=== PATIENT | female | born 1995 | race American Indian/Alaskan Native ===

== ENCOUNTER 2019-01-03 08:52 | Outpatient (CLI) | payer MEDICAID | END 2019-01-03 12:16 | disposition home or self-care (01) | LOC: LAB 08:52 → TRG 11:36 → LAB 12:16 | PROVIDERS: ATTEND Obstetrics & Gynecology | DX: O36.0130 Maternal care for anti-D [Rh] antibodies, third trimester, not applicable or unspecified (principal); Z3A.31 31 weeks gestation of pregnancy | CPT/HCPCS: 86850; 86900; 86901; 96372; J2790 ==

== ENCOUNTER 2019-01-31 13:24 | Outpatient (CLI) | payer MEDICAID ==
[2019-01-31] MEDS ORDERED: LACTATED RINGERS 500 ML IV ONE (13:28)
[2019-01-31 13:45] VITALS: BP 111/53
[2019-01-31 14:14] LABS: Bacteria,Urine 1+ /HPF (Negative); Bilirubin,Urine NEG (Negative); Blood,Urine NEG (Negative); Color,Urine Yellow (Yellow); Mucus,Urine 3+ /HPF; Protein,Urine <15 mg/dL mg/dL (Negative); RBC,Urine < 1.0 /HPF (0.0-6.0); Urobilinogen,Urine < 2.0 mg/dL (<2.0)
[2019-01-31] MEDS ORDERED: LACTATED RINGERS 1,000 ML IV ONE (14:55)
== END 2019-01-31 15:08 | disposition home or self-care (01) ==
LOC: TRG 13:24
PROVIDERS: ATTEND Obstetrics & Gynecology
DX: O26.893 Other specified pregnancy related conditions, third trimester (principal); R10.2 Pelvic and perineal pain; M54.5 Low back pain; O47.03 False labor before 37 completed weeks of gestation, third trimester; Z3A.35 35 weeks gestation of pregnancy
CPT/HCPCS: 81001; 96360; J7120

== ENCOUNTER 2019-02-10 13:04 | Outpatient (CLI) | payer MEDICAID ==
[2019-02-10] MEDS ORDERED: LACTATED RINGERS 0 ML ONE (15:15)
[2019-02-10 15:22] LABS: Bilirubin,Urine NEG (Negative); Blood,Urine NEG (Negative); Color,Urine Yellow (Yellow); Mucus,Urine 3+ /HPF; Protein,Urine <15 mg/dL mg/dL (Negative)
[2019-02-10 15:24] LABS: WBC,Urine < 1.0 /HPF (0.0-6.0)
[2019-02-10 15:59] LABS: BUN/Creatinine Ratio 10; Blood Urea Nitrogen 3 mg/dL (7-17); Calcium 9.2 mg/dL (8.4-10.2); Hemolysis Index 74
--- NOTE | 2019-02-10 16:43 | Vascular Lab Report ---
DUPLEX DOPPLER LOWER EXTREMITY VEINS, RIGHT INDICATION: rt calf pain. Lower extremity swelling. TECHNIQUE: Duplex doppler imaging was performed through the veins of the right lower extremity using venous comp ression and other maneuvers. COMPARISON: None available. FINDINGS: Common Femoral vein: Negative. Superficial Femoral vein: Negative. Popliteal vein: Negative. Calf veins: Negative. Additional findings: None. IMPRESSION: 1. No sonographic evidence for DVT in the right lower extremity. Signer Name: Alcides Mendoza MD Signed: 02/10/2019 4:39 PM Workstation Name: [id number]
[2019-02-10 17:14] VITALS: BP 124/75
[2019-02-10] MEDS ORDERED: cefTRIAXone/NS 1 GM/50 ML 1 GM/50 ML BAG IV ONE (17:30)
== END 2019-02-10 18:22 | disposition home or self-care (01) ==
LOC: TRG 13:04
PROVIDERS: ATTEND Obstetrics & Gynecology
DX: O26.893 Other specified pregnancy related conditions, third trimester (principal); M25.561 Pain in right knee; M79.661 Pain in right lower leg; M79.89 Other specified soft tissue disorders; R10.2 Pelvic and perineal pain; O47.03 False labor before 37 completed weeks of gestation, third trimester; Z3A.36 36 weeks gestation of pregnancy
CPT/HCPCS: 36415; 80048; 81001; 96374; J0696; J7120

== ENCOUNTER 2019-02-13 21:59 | Observation (INO) | payer MEDICAID, OTHER ==
[2019-02-14] MEDS ORDERED: TERBUTALINE 1 MG/1 ML INJ IVP PRN (01:13)
[2019-02-14] MEDS ORDERED: ePHEDrine SULFATE 50 MG/1 ML INJ IV PRN ×2 (01:13→10:00)
[2019-02-14] MEDS ORDERED: fentaNYL 100 MCG/2 ML INJ IV PRN (01:13)
[2019-02-14] MEDS ORDERED: MINERAL OIL 30 ML ORAL LIQD PO PRN (01:13)
[2019-02-14] MEDS ORDERED: TERBUTALINE 1 MG/1 ML INJ SUB-Q PRN (01:13)
[2019-02-14] MEDS ORDERED: BUTORPHANOL 2 MG/1 ML INJ IV PRN (01:13)
[2019-02-14 01:52] LABS: Hematocrit 29.7 % (30.3-42.9); Hemoglobin 9.7 gm/dl (10.1-14.3); Mean Corpuscular HGB Conc 33 % (30-34); Mean Corpuscular Volume 77 fl (79-97); Platelet Count 215 K/mm3 (140-440); Red Blood Count 3.88 M/mm3 (3.65-5.03); Red Cell Distribution Width 14.6 % (13.2-15.2)
[2019-02-14] MEDS ORDERED: OXYTOCIN 20 UNIT/1000ML DRIP 20 UNITS/1,000 ML BAG IV SCH ×2 (02:00→16:19)
[2019-02-14] MEDS ORDERED: OXYTOCIN DRIP 30 UNITS/500 ML BAG IV SCH (04:00)
[2019-02-14] MEDS: LACTATED RINGERS 1,000 ML IV SCH ×3 (04:12→10:46)
[2019-02-14] MEDS ORDERED: NALOXONE 2 MG/2 ML INJ IV PRN (10:00)
[2019-02-14] MEDS ORDERED: fentaNYL-BUPIV 2 MCG/ML-0.125% 200 MCG/100 ML BAG EPIDURAL SCH (10:00)
[2019-02-14] MEDS ORDERED: DEXMEDETOMIDINE 200 MCG/2 ML VIAL IV ONE (10:08)
[2019-02-14] MEDS ORDERED: SODIUM CHLORIDE P/F VIAL 10 ML 10 ML ONE (10:08)
--- NOTE | 2019-02-14 10:33 | Anesthesia Consultation ---
Anesthesia Consult and Med Hx Date of service: 02/14/19 - Airway Anesthetic Teeth Evaluation: Good ROM Head & Neck: Adequate Mental/Hyoid Distance: Adequate Mallampati Class: Class II Intubation Access Assessment: Probably Good - Pulmonary Exam CTA: Yes - Cardiac Exam Cardiac Exam: RRR - Pre-Operative Health Status ASA Pre-Surgery Classification: ASA3 Proposed Anesthetic Plan: Epidural - Pulmonary Hx Asthma: No COPD: No Hx Pneumonia: No - Cardiovascular System Hx Hypertension: No - Central Nervous System Hx Seizures: No Hx Psychiatric Problems: No - Endocrine Hx Renal Disease: No Hx End Stage Renal Disease: No Hx Hypothyroidism: No Hx Hyperthyroidism: No - Hematic Hx Anemia: Yes Hx Sickle Cell Disease: No - Other Systems Hx Alcohol Use: No Hx Obesity: Yes
--- NOTE | 2019-02-14 12:10 | History and Physical Report ---
History of Present Illness Date of examination: 02/14/19 Date of admission: 02/13/19 23:05 Chief complaint: contractions History of present illness: Pt is a 23 year old -[place] female ADRIANA 03/06/19 at 37w1d who presents with regular painful contractions and advanced cervical dilation. She reports no vaginal bleeding or leakage of fluid. She has had care at [facility] since 13 wks complicated by genital herpes without lesion or prodrome, obesity, Rh negative status post Rhogam, UTI s/p Macrobid. She is GBS negative. Past History Past Medical History: other (Obesity ) Past Surgical History: D&C [employer] History: herpes Family/Genetic History: diabetes, hypertension Social history: no significant social history - Obstetrical History Expected Date of Delivery: 03/06/19 Actual Gestation: 37 Week(s) 1 Day(s) : 3 Para: 1 Hx # Term Pregnancies: 1 Number of Pregnancies: 0 Spontaneous Abortions: 0 Induced : 1 Number of Living Children: 1 Medications and Allergies Allergies Allergy/AdvReac Type Severity Reaction Status Date / Time No Known Allergies Allergy Verified 01/03/19 11:58 Home Medications Medication Instructions Recorded Confirmed Last Taken Type No Known Home Medications [No 02/13/19 02/13/19 Unknown History Reported Home Medications] Active Meds: Active Medications Butorphanol Tartrate (Stadol) 2 mg IV Q2H PRN PRN Reason: Pain , Severe (7-10) Ephedrine Sulfate (Ephedrine Sulfate) 10 mg IV Q2M PRN PRN Reason: Hypotension Ephedrine Sulfate (Ephedrine Sulfate) 10 mg IV Q2M PRN PRN Reason: Hypotension Stop: 02/14/19 18:00 Fentanyl (Sublimaze) 100 mcg IV Q2H PRN PRN Reason: Labor Pain Oxytocin/Sodium Chloride (Pitocin/Ns 20 Unit/1000ml Drip) 20 units in 1,000 mls @ 125 mls/hr IV DIRECT BETZY Lactated Ringer's (Lactated Ringers) 1,000 mls @ 125 mls/hr IV DIRECT BETZY Last Admin: 02/14/19 10:46 Dose: 125 mls/hr Documented by: Oxytocin/Sodium Chloride (Pitocin/Ns 30 Unit/500ml) 30 units in 500 mls @ 2 mls/hr IV TITR BETZY; Protocol Last Titration: 02/14/19 05:44 Dose: 8 mls/hr Documented by: Fentanyl/Bupivacaine/Sodium Chlor (Fentanyl-Bupiv 2 Mcg/Ml-0.125%) 200 mcg in 100 mls @ 12 mls/hr EPIDURAL TITR BETZY; Protocol Last Admin: 02/14/19 11:11 Dose: 12 mls/hr Documented by: Mineral Oil (Mineral Oil) 30 ml PO QHS PRN PRN Reason: Constipation Naloxone HCl (Naloxone) 0.2 mg IV Q5M PRN PRN Reason: Respiratory sedation Terbutaline Sulfate (Brethine) 0.25 mg SUB-Q ONCE PRN PRN Reason: Hyperstimulation/Hypertonicity Terbutaline Sulfate (Brethine) 0.25 mg IVP ONCE PRN PRN Reason: Hyperstimulation/Hypertonicity Review of Systems All systems: negative - Vital Signs Vital signs: Vital Signs Pulse BP 87 133/81 02/13/19 23:05 02/13/19 23:05 Temp Pulse Resp BP Pulse Ox 97.8 F 81 20 115/56 97 02/14/19 08:00 02/14/19 12:08 02/14/19 04:10 02/14/19 12:08 02/14/19 10:26 - Physical Exam Breasts: Positive: deferred Cardiovascular: Regular rate Lungs: Positive: Clear to auscultation Abdomen: Positive: soft (obese, gravid ), normal bowel sounds Genitourinary (Female): Positive: normal external genitalia Uterus: Positive: enlarged (gravid ) Extremities: Positive: edema (trace ) - Obstetrical FHR: auscultation normal Uterine Contraction Monitor Mode: External Cervical Dilatation: 5 Cervical Effacement Percentage: 70 station: -2 Uterine Contraction Pattern: Irregular Uterine Tone Measurement Phase: Resting Uterine Contraction Intensity: Moderate Results Result Diagrams: 02/14/19 01:39 Abnormal lab results 02/14/19 Range/Units 01:39 Hgb 9.7 L (10.1-14.3) gm/dl Hct 29.7 L (30.3-42.9) % MCV 77 L (79-97) fl MCH 25 L (28-32) pg All other labs normal. Assessment and Plan A: IUP at 37w1d Active labor Obesity Genital Herpes without lesion or prodrome Anemia GBS Negative P: Admit to labor and delivery AROM- clear fluid Pitocin augmentation Anticipate
--- NOTE | 2019-02-14 12:10 | Procedure Note ---
OB Delivery Note - Delivery Date of Delivery: 02/14/19 Surgeon: NIEVES LUCIANO Estimated blood loss: 300cc - Vaginal Delivery presentation: vertex Delivery position: OA Intrapartum events: PROM->1hr before delivery, mult.variable deceleratio Delivery induction: none Delivery augmentation: rupture of membranes, pitocin Delivery monitor: external FHT, external uterine Route of delivery: Delivery placenta: spontaneous Delivery cord: 3 umbilical vessels Episiotomy: none Delivery laceration: none Anesthesia: epidural - A at 1 minute: 8 at 5 minutes: 9 Infant Gender: Male (3688g (8lb 2oz) @ 1143 am)
[2019-02-14] MEDS ORDERED: MAGNESIUM HYDROXIDE (MOM) ORAL LIQD UDC PO PRN (16:19)
[2019-02-14] MEDS ORDERED: PROMETHAZINE 25 MG TAB PO PRN (16:19)
[2019-02-14] MEDS ORDERED: ONDANSETRON 4 MG/2 ML INJ IV PRN (16:19)
[2019-02-14] MEDS ORDERED: WITCH HAZEL/ GLYCERIN PAD TP PRN (16:19)
[2019-02-14] MEDS ORDERED: BENZOCAINE/MENTHOL 20/0.5% TOP SPRAY 56 GM TP PRN (16:19)
[2019-02-14] MEDS ORDERED: diphenhydrAMINE 25 MG CAP PO PRN (16:19)
[2019-02-14] MEDS ORDERED: LANOLIN/ZINC/DIMETHICONE (LANSINOH) 7 GM TP PRN ×2 (16:19)
[2019-02-14] MEDS ORDERED: PROMETHAZINE 25 MG RECT SUPP PR PRN (16:19)
[2019-02-14] MEDS ORDERED: ACETAMINOPHEN 325 MG TAB PO PRN (16:19)
[2019-02-14] MEDS: IBUPROFEN 600 MG TAB PO SCH (18:25)
[2019-02-14] MEDS: FERROUS SULFATE 325 MG TAB PO SCH (22:04)
[2019-02-15] MEDS: IBUPROFEN 600 MG TAB PO SCH (00:26)
[2019-02-15 01:20] LABS: Hematocrit 27.6 % (30.3-42.9); Hemoglobin 8.8 gm/dl (10.1-14.3)
[2019-02-15] MEDS: HYDROcodone/ACETAMINOPHEN 5-325 MG TAB PO PRN ×3 (02:02→18:23)
[2019-02-15] MEDS: FERROUS SULFATE 325 MG TAB PO SCH ×2 (11:52→22:59)
[2019-02-15] MEDS ORDERED: TETANUS,DIPH,PERTUSS(ACELL) VACCINE 0.5 ML SYRINGE IM ONE (12:11)
[2019-02-15] MEDS ORDERED: MEASLES, MUMPS & RUBELLA 12,500 UNIT/0.5 ML VACCINE SUB-Q ONE (12:11)
--- NOTE | 2019-02-15 18:34 | Progress Note ---
Assessment and Plan A: PPD#1 s/p at term Acute on chronic anemia, asymptomatic P: Routine care Anticipate discharge tomorrow Subjective - Subjective Date of service: 02/15/19 Principal diagnosis: s/p at term Interval history: Pt feeling well. No complaints. Patient reports: appetite normal, voiding normally, pain well controlled, ambulating normally : doing well Objective - Vital Signs Latest vital signs: Vital Signs Temp Pulse Resp BP BP Pulse Ox 02/15/19 17:05 98.1 F 64 18 109/65 95 02/15/19 08:00 97.8 F 65 18 111/66 97 02/15/19 01:24 98.4 F 61 20 101/61 98 Intake and Output 02/15/19 02/15/19 02/15/19 06:59 14:59 22:59 Other: # Voids Void 1 - Exam Breasts: Present: deferred Cardiovascular: Present: Regular rate Lungs: Present: Clear to auscultation Abdomen: Present: soft (obese) Uterus: Present: fundal height at umbilicus Extremities: Present: edema (trace) - Labs Labs: Abnormal lab results 02/15/19 Range/Units 00:26 Hgb 8.8 L (10.1-14.3) gm/dl Hct 27.6 L (30.3-42.9) %
[2019-02-16] MEDS: IBUPROFEN 600 MG TAB PO SCH ×2 (00:59→12:26)
[2019-02-16] MEDS: FERROUS SULFATE 325 MG TAB PO SCH (10:20)
--- NOTE | 2019-02-16 11:01 | Progress Note ---
Assessment and Plan A: PPD#2 s/p at term Acute on chronic anemia, asymptomatic P: Discharge today with follow up in 4 wks Subjective - Subjective Date of service: 02/16/19 Principal diagnosis: s/p at term Interval history: Pt feeling well. No complaints. Patient reports: appetite normal, voiding normally, pain well controlled, ambulating normally [place]: doing well Objective - Vital Signs Latest vital signs: Vital Signs Temp Pulse Resp BP BP Pulse Ox 02/16/19 08:35 97.8 F 61 20 106/37 02/16/19 00:55 98.4 F 70 20 116/48 95 02/15/19 17:05 98.1 F 64 18 109/65 95 Intake and Output 02/15/19 02/16/19 02/16/19 22:59 06:59 14:59 Intake Total 360 240 Balance 360 240 Intake: Oral 240 Intake, Free Water 360 Other: Total, Intake Amount 240 # Voids Void 2 1 - Exam Breasts: Present: deferred Cardiovascular: Present: Regular rate Lungs: Present: Clear to auscultation Abdomen: Present: soft (obese ) Uterus: Present: fundal height below umbilicus Extremities: Present: normal
--- NOTE | 2019-02-16 11:02 | Discharge Summary ---
Providers - Providers Date of Admission: 02/13/19 23:05 Date of discharge: 02/16/19 Attending physician: RE RICHARDSON MD Primary care physician: RE RICHARDSON MD Hospitalization Reason for admission: active labor Delivery: Procedure details: Please see delivery note. Episiotomy: none Laceration: none Other procedures: none complications: none Discharge diagnosis: IUP at term delivered [place] baby: male Hospital course: Pt was admitted in labor and went on to have a spontaneous vaginal delivery. Her course was uncomplicated and she met discharge criteria on PPD#2. She will follow up in 4 wks in the office. Condition at discharge: Stable Disposition: - TO HOME OR SELFCARE - Discharge Diagnoses (1) (spontaneous vaginal delivery) Status: Acute (2) Term of male Status: Acute (3) Obesity Status: Acute Qualifiers: Obesity type: unspecified obesity type Obesity classification: adult class 2 (BMI 35 - 39.9) Serious obesity comorbidity presence: unspecified whether serious comorbidity present Body mass index: BMI 39.0-39.9 Qualified Code(s): E66.9 - Obesity, unspecified; Z68.39 - Body mass index (BMI) 39.0-39.9, adult (4) Anemia Status: Acute Qualifiers: Anemia type: iron deficiency Iron deficiency anemia type: inadequate dietary iron intake Qualified Code(s): D50.8 - Other iron deficiency anemias Plan - Discharge Medications Prescriptions: Ferrous Sulfate [Feosol 325 MG tab] 325 mg PO BID #60 tablet Ibuprofen [Motrin] 800 mg PO Q8HR PRN #30 tablet PRN Reason: Pain, Moderate (4-6) HYDROcodone/APAP 5-325 [[place] 5/325] 1 each PO Q4HR PRN #20 tablet PRN Reason: Pain - Provider Discharge Summary Activity: routine, no sex for 6 weeks, no heavy lifting 4 weeks, no strenuous exercise Diet: routine Instructions: routine Additional instructions: [] Smoking cessation referral if applicable(refer to patient education folder for contact #) [] Refer to [facility] Booklet Call your doctor immediately for: * Fever > 100.5 * Heavy vaginal bleeding ( >1 pad per hour) * Severe persistent headache * Shortness of breath * Reddened, hot, painful area to leg or breast * Drainage or odor from incision. * Keep incision clean and dry at all times and follow doctor's instructions regarding bathing/showering - Follow up plan Follow up: NIEVES LUCIANO MD [Staff Physician] - 03/17/19 (Please call to schedule appt )
[2019-02-16 16:44] VITALS: BP 120/59
== END 2019-02-16 14:40 | disposition home or self-care (01) ==
LOC: TRG 21:59 → LD 23:05 → TRG 23:05 → OB 02-14 15:29
PROVIDERS: ADMIT Obstetrics & Gynecology; ATTEND Obstetrics & Gynecology
DX: O80 Encounter for full-term uncomplicated delivery (principal); Z3A.37 37 weeks gestation of pregnancy; Z37.0 Single live birth
CPT/HCPCS: 36415; 59409; 85014; 85018; 85027; 86592; 86850; 86900; 86901; 96365; 96366; A6250; G0378; J2590; J3490; J7120